=== PATIENT | female | born 1940 | race Caucasian/White ===

== ENCOUNTER 2016-10-26 08:24 | Emergency (ER) | payer OTHER ==
[~2016-10-26] VITALS: Ht 162.6 cm; Wt 76.2 kg
--- NOTE | ~2016-10-26 | EKG ---
[place] [address] [place] [address] ELECTROCARDIOGRAM REPORT Name: PAULETTE MÁRQUEZ [place] Room #: [facility]P [facility] [id number] Admission: 10/26/16 Attend Phys: Discharge: 10/26/16 Date of : 42 Report #: [id number] THIS REPORT FOR: //name// [facility] ED Test Date: 2016-10-26 Test Time: 09:44:06 Pat Name: PAULETTE MÁRQUEZ Department: Room: Gender: F Teacher Assistant: : 1940 Requested By: Anders Lott Order Number: [id number] MD: Ruddy Dailey Measurements Intervals Anderson Rate: 70 P: 82 WI: 145 QRS: -42 QRSD: 116 T: 42 QT: 443 QTc: 479 Interpretive Statements Sinus rhythm Incomplete RBBB and LAFB Low voltage, precordial leads No previous ECG available for comparison Electronically Signed On 10-27-2016 8:19:40 CDT by Ruddy Dailey [email or web address] <ELECTRONICALLY SIGNED> By: Ruddy Dailey MD, [facility] 10/27/16 0819 0944 0944 Ruddy Dailey MD, FACC /EPI
[~2016-10-26 08:24] MED LIST: ALENDRONATE SOD70 MG PO; ASPIR 8181 MG PO; ASPIRIN325 PO; IBUPROFEN 800800 MG PO; NORCO 5-325 TA1 EACH PO; PRINIVIL5 MG PO; VITAMIN D2000 UNIT PO; ZOCOR 10 MG TAB10 MG PO
[2016-10-26 09:19] LABS: ABSOLUTE NEUTROPHILS 3.5 thou/uL (1.4-8.2); BASOPHILS 0.6 % (0.0-2.0); EOSINOPHILS 1.9 % (0.0-3.0); HEMATOCRIT 39.9 % (37.0-47.0); HEMOGLOBIN 13.6 gm/dL (12.0-15.0); LYMPHOCYTES 25.2 % (24.0-44.0); MCH 31.6 pg (26.0-34.0); MCV 92.9 fL (80.0-100.0); MONOCYTES 8.4 % (1.0-8.0); PLATELET COUNT 178 thou/uL (150-400); POLYS 63.9 % (36.0-66.0); RDW 13.3 % (10.5-14.5); WBC 5.4 thou/uL (4.0-11.0)
[2016-10-26 09:20] LABS: MANUAL DIFF NO
[2016-10-26 09:25] LABS: ANION GAP 2 mmol/L (7-16); BUN 15 mg/dL (7-18); CALCIUM 9.1 mg/dL (8.5-10.1); CHLORIDE 107 mmol/L (98-107); CO2 32 mmol/L (21-32); CREATININE 0.9 mg/dL (0.6-1.0); GLUCOSE 102 mg/dL (74-106); POTASSIUM 4.2 mmol/L (3.5-5.1); SODIUM 141 mmol/L (136-145)
[2016-10-26 09:33] LABS: ALBUMIN 3.7 g/dL (3.4-5.0); ALKALINE PHOSPHATASE 29 U/L (46-116); SGOT 18 U/L (15-37); SGPT 19 U/L (30-65); TOTAL BILIRUBIN 0.7 mg/dL (<0.1-1.0); TOTAL PROTEIN 7.3 g/dL (6.4-8.2); TROPONIN-I < 0.04 ng/mL (<0.04-0.07)
[2016-10-26] MEDS ORDERED: LISINOPRIL10 MG PO (10:25)
[2016-10-26 10:59] VITALS: BP 148/80
== END 2016-10-26 11:00 | disposition home or self-care (01) ==
LOC: ER 08:24
PROVIDERS: Physician Assistant
DX: I10 Essential (primary) hypertension (principal); Z98.890 Other specified postprocedural states; Z90.89 Acquired absence of other organs

== ENCOUNTER → 2017-03-03 | Outpatient (CLI) | payer OTHER ==
[~2017-03-03] VITALS: Ht 162.6 cm; Wt 74.8 kg
[~2017-03-03] MED LIST changes: +FLEXERIL PO; +LISINOPRIL10 MG PO
--- NOTE | ~2017-03-03 | P ---
[facility] [place] [address] PROCEDURE REPORT Name: WILLIPAULETTE Kate Room #[facility] [id number] Admission: 03/03/17 Attend Phys: Peter Nesbitt Discharge: Date of : 42 Report #: [id number] THIS REPORT FOR: //name// CC: Peter Nichole DO DATE OF SERVICE: 03/03/2017 PROCEDURE PERFORMED: Colonoscopy. HISTORY OF PRESENT ILLNESS: The patient is a 76-year-old female with previous history of colon polyps. Denies any symptoms. No family history of colon cancer. PROCEDURE: The risks and benefits of the procedure were explained to the patient, those risks including, but not limited to bleeding, perforation, and the risk of sedation. She understood these risks and gave informed consent. Sedation was given using propofol per anesthesia. Next, a digital rectal exam was initially performed, which was normal. Next, using a standard Fujinon colonoscope, the scope was placed in the patient's anus and advanced under direct vision to the cecum. The overall prep was excellent. The cecum and ileocecal valve were normal in appearance. Ascending, transverse, descending and sigmoid colon were all normal. The rectal mucosa was normal. On retroflexion, no abnormalities were noted. Scope was then withdrawn and the procedure terminated. The patient tolerated the procedure well. IMPRESSION: Normal colonoscopy. RECOMMENDATIONS: Consider repeat colonoscopy in 10 years. Thank you for allowing me to participate in her care. <ELECTRONICALLY SIGNED> By: Peter Dick MD 03/06/17 0808 0919 1022 Peter Dick MD /nt
== END | disposition home or self-care (01) ==
LOC: GI 02-10 10:52
DX: Z09 Encounter for follow-up examination after completed treatment for conditions other than malignant neoplasm (principal); Z86.010 Personal history of colon polyps; I10 Essential (primary) hypertension; E78.5 Hyperlipidemia, unspecified; Z98.890 Other specified postprocedural states
CPT/HCPCS: 62110; 62900